=== PATIENT | male | born 1980 | race Caucasian/White ===

== ENCOUNTER 2019-04-29 09:37 | Observation (INO) ==
[2019-04-29] MEDS ORDERED: HYDROmorphone 2 MG/1 ML VIAL IV STA (11:31)
[2019-04-29] MEDS ORDERED: ONDANSETRON 4 MG/2 ML VIAL IV STA (11:31)
[2019-04-29] MEDS ORDERED: PANTOPRAZOLE 40 MG VIAL IV STA (11:31)
[2019-04-29] MEDS ORDERED: SODIUM CHLORIDE 0.9% 1,000 ML IV STA (11:31)
[2019-04-29 12:08] LABS: Albumin 3.5 G/DL (3.4-5.0); Bilirubin,Total 0.6 MG/DL (0.2-1.0); Calcium 8.7 MG/DL (8.5-10.1); Osmolality,Calculated 272.7 MOS/KG (273-304); Total Protein 8.4 G/DL (6.4-8.3)
[2019-04-29 12:13] LABS: Basophils # 0.1 10*3/uL (0.0-0.2); Basophils % 0.9 % (0.0-0.8); Eosinophils # 0.1 10*3/uL (0.0-0.87); Hematocrit 45.2 VOL% (42.0-52.0); Immature Granulocytes % 0.8 %; Immature Granulocytes Absolute 0.09 #; Lymphocytes # 6.4 10*3/uL (1.4-4.0); Lymphocytes % 58.6 % (21.2-54.2); Mean Corpuscular Volume 87.9 FL (87-102); Mean Platelet Volume 10.7 FL (9.6-12.0); Monocytes % 6.6 % (1.7-12.7); Neutrophils % 32.1 % (38.7-73.9); Platelet Count 195 T/CUMM (130-400); Red Blood Count 5.14 MC/CUMM (3.8-5.5); Red Cell Distribution Width 14.1 % (9.3-17.3)
[2019-04-29 12:20] LABS: Hemoglobin 14.9 GM/DL (14.0-18.0)
[2019-04-29 12:23] LABS: Apearance,Urine CLEAR (Clear); Bilirubin,Urine Negative (Negative); Blood, Urine Negative (Negative); Glucose,Urine (UA) Negative (Negative); Ketones,Urine Negative (Negative); Mucus,Urine Many /LPF (Occasional); Nitrite,Urine Negative (Negative); Protein,Urine 30 MG/DL; RBC,Urine 1 /HPF (0-4); Urine Color Amber (Yellow); Urine Specific Gravity 1.024 (1.001-1.035); WBC,Urine 1 /HPF (0-6)
[2019-04-29 12:31] LABS: Eosinophils 1 % (0-10); Total Cells Counted 100
[2019-04-29 12:34] LABS: Atypical Lymphocytes Few; Band Neutrophils 1 % (0-10); Lymphocytes 50 % (20-55); Platelet Estimate Adequate; Segmented Neutrophils 36 % (50-85)
[2019-04-29] MEDS ORDERED: FAMOTIDINE 20 MG/2 ML VIAL IV ONE (14:01)
[2019-04-29] MEDS ORDERED: FAMOTIDINE 20 MG/2 ML VIAL IV STA (14:05)
[2019-04-29] MEDS ORDERED: ACETAMINOPHEN 325 MG TABLET PO PRN (14:30)
[2019-04-29] MEDS ORDERED: PROMETHAZINE 25 MG/1 ML VIAL IM PRN (14:30)
[2019-04-29] MEDS ORDERED: MORPHINE 4 MG/1 ML VIAL IV PRN (14:30)
[2019-04-29] MEDS ORDERED: ONDANSETRON 4 MG/2 ML VIAL IV PRN (14:30)
[2019-04-29] MEDS ORDERED: TUBERCULIN SKIN TEST 0.1 ML SYRINGE INTRADERM ONE (15:30)
[2019-04-29 15:37] LABS: Risk Ratio 5.56; Thyroid Stimulating Hormone 2.55 uIU/ml (0.358-3.74)
[2019-04-29 16:59] LABS: HIV Antigen/Antibody Result Nonreactive (Nonreactive)
[2019-04-29 17:08] LABS: Hepatitis B Core IgM Quant 0.05 Index; Hepatitis B Surface Ag Quant < 0.10 Index; Hepatitis B Surface Ag Result Negative (Negative); Hepatitis C Virus Ab Result Negative (Negative)
[2019-04-29] MEDS: PANTOPRAZOLE 40 MG TABLET PO SCH ×2 (17:52→20:42)
[2019-04-29] MEDS: CIPROFLOXACIN INJ 400 MG in PREMIX 1 EACH IV SCH (17:52)
[2019-04-29] MEDS: metroNIDAZOLE INJ 500 MG in PREMIX 1 EACH IV SCH ×2 (17:52→23:15)
[2019-04-29] MEDS: SODIUM CHLORIDE 0.9% 1,000 ML IV SCH (17:53)
[2019-04-29 20:37] LABS: Barbiturates Screen,Urine Negative (Negative); Benzodiazepines Screen,Urine Negative (Negative); Cannabinoid Screen,Urine Positive (Negative); Opiate Screen,Urine Positive (Negative); Phencyclidine Screen,Urine Negative (Negative)
[2019-04-30] MEDS ORDERED: ALUMINUM/MAGNES/SIMETH MAX STR 30 ML UDCUP PO ONE (03:56)
[2019-04-30] MEDS: CIPROFLOXACIN INJ 400 MG in PREMIX 1 EACH IV SCH (04:21)
[2019-04-30] MEDS: SODIUM CHLORIDE 0.9% 1,000 ML IV SCH ×2 (04:21→07:11)
[2019-04-30 05:18] LABS: Bilirubin,Total 0.8 MG/DL (0.2-1.0); Total Protein 7.3 G/DL (6.4-8.3)
[2019-04-30 05:32] LABS: Basophils # 0.1 10*3/uL (0.0-0.2); Basophils % 0.9 % (0.0-0.8); Eosinophils # 0.2 10*3/uL (0.0-0.87); Hematocrit 42.6 VOL% (42.0-52.0); Hemoglobin 14.1 GM/DL (14.0-18.0); Lymphocytes # 5.9 10*3/uL (1.4-4.0); Lymphocytes % 57.5 % (21.2-54.2); Mean Corpuscular HGB Conc 33.1 GM/DL (32-36); Monocytes % 7.6 % (1.7-12.7); Platelet Count 186 T/CUMM (130-400); Red Blood Count 4.84 MC/CUMM (3.8-5.5); White Blood Count 10.2 T/CUMM (4-12)
[2019-04-30 05:52] LABS: Band Neutrophils 2 % (0-10); Eosinophils 2 % (0-10); Hypochromasia Slight; Lymphocytes 57 % (20-55); Platelet Estimate Adequate; Segmented Neutrophils 31 % (50-85); Total Cells Counted 100
[2019-04-30 05:53] LABS: Atypical Lymphocytes Few
[2019-04-30] MEDS: metroNIDAZOLE INJ 500 MG in PREMIX 1 EACH IV SCH (08:16)
[2019-04-30 11:46] VITALS: BP 148/99
[2019-05-02 22:31] LABS: IgA Serum (MAYO) 363 mg/dL (61 - 356)
[2019-05-08 12:57] LABS: Tissue Transglutaminase IgA Ab < 1.2 U/mL
== END 2019-04-30 13:10 | disposition hospice, home (50) ==
LOC: N.ED 09:37 → N.2E 09:37
PROVIDERS: ADMIT Internal Medicine; ATTEND Internal Medicine

== ENCOUNTER 2019-07-28 16:16 | Inpatient (IN) ==
[2019-07-28] MEDS ORDERED: PANTOPRAZOLE 40 MG VIAL IV STA (16:58)
[2019-07-28] MEDS ORDERED: SODIUM CHLORIDE 0.9% 1,000 ML IV STA (16:58)
[2019-07-28] MEDS ORDERED: ALUM/MAG/SIMETH/LIDO VISC 1:1 30 ML BOTTLE PO STA (16:58)
[2019-07-28] MEDS ORDERED: HYDROmorphone 2 MG/1 ML VIAL IV STA (16:58)
[2019-07-28] MEDS ORDERED: KETOROLAC 30 MG/1 ML VIAL IV STA (16:58)
[2019-07-28] MEDS ORDERED: ONDANSETRON 4 MG/2 ML VIAL IV STA (16:58)
[2019-07-28 17:08] LABS: Basophils % 0.4 % (0.0-0.8); Eosinophils # 0.2 10*3/uL (0.0-0.87); Eosinophils % 3.5 % (0.00-10.9); Hematocrit 51.8 VOL% (42.0-52.0); Immature Granulocytes % 0.4 %; Immature Granulocytes Absolute 0.03 #; Lymphocytes # 2.1 10*3/uL (1.4-4.0); Mean Corpuscular HGB Conc 34.7 GM/DL (32-36); Mean Corpuscular Volume 85.1 FL (87-102); Mean Platelet Volume 9.7 FL (9.6-12.0); Neutrophils % 53.7 % (38.7-73.9); Platelet Count 192 T/CUMM (130-400); Red Blood Count 6.09 MC/CUMM (3.8-5.5); Red Cell Distribution Width 13.4 % (9.3-17.3); White Blood Count 6.8 T/CUMM (4-12)
[2019-07-28 17:26] LABS: Bilirubin,Total 0.4 MG/DL (0.2-1.0); Calcium 9.2 MG/DL (8.5-10.1); Osmolality,Calculated 270.7 MOS/KG (273-304); Total Protein 8.3 G/DL (6.4-8.3)
[2019-07-28] MEDS ORDERED: DEXTROSE 50% 25 GM/50 ML VIAL IV STA (18:19)
[2019-07-28] MEDS ORDERED: DEXTROSE 50% 25 GM/50 ML SYRINGE IV ONE (18:33)
[2019-07-28 19:18] LABS: Apearance,Urine Slightly Hazy (Clear); Bilirubin,Urine Negative (Negative); Glucose,Urine (UA) 50 mg/dL (Negative); Ketones,Urine Negative (Negative); Nitrite,Urine Negative (Negative); Protein,Urine Negative; Urine Color Yellow (Yellow); Urine Specific Gravity 1.025 (1.001-1.035)
[2019-07-28 19:19] LABS: Bacteria,Urine Occasional /HPF (Few); Blood, Urine Negative (Negative); Hyaline Casts,Urine 1 /LPF (0-3); Mucus,Urine Occasional /LPF (Occasional); RBC,Urine 1 /HPF (0-4); Urine Urobilinogen < 2.0 EU/DL (0.2-1.0); WBC,Urine <1 /HPF (0-6)
[2019-07-28] MEDS ORDERED: ONDANSETRON 4 MG/2 ML VIAL IV PRN (19:48)
[2019-07-28] MEDS ORDERED: DEXTROSE 10% 250 ML BAG IV PRN (19:58)
[2019-07-28] MEDS ORDERED: GLUCAGON 1 MG VIAL IM PRN (19:58)
[2019-07-28] MEDS: DEXT 5% NACL 0.45% KCL 20 MEQ 20 MEQ/1,000 ML BAG IV SCH (21:08)
[2019-07-29] MEDS: DEXT 5% NACL 0.45% KCL 20 MEQ 20 MEQ/1,000 ML BAG IV SCH ×3 (04:18→19:44)
[2019-07-29 06:10] LABS: Basophils % 0.5 % (0.0-0.8); Eosinophils # 0.3 10*3/uL (0.0-0.87); Eosinophils % 4.7 % (0.00-10.9); Hematocrit 46.4 VOL% (42.0-52.0); Immature Granulocytes % 0.3 %; Immature Granulocytes Absolute 0.02 #; Lymphocytes # 1.8 10*3/uL (1.4-4.0); Lymphocytes % 30.6 % (21.2-54.2); Mean Corpuscular HGB Conc 34.1 GM/DL (32-36); Mean Corpuscular Volume 86.7 FL (87-102); Mean Platelet Volume 9.9 FL (9.6-12.0); Monocytes % 11.4 % (1.7-12.7); Neutrophils % 52.5 % (38.7-73.9); Platelet Count 174 T/CUMM (130-400); Red Blood Count 5.35 MC/CUMM (3.8-5.5); Red Cell Distribution Width 13.3 % (9.3-17.3)
[2019-07-29 06:17] LABS: Iron 153 UG/DL (65-175)
[2019-07-29 06:22] LABS: Hemoglobin 15.8 GM/DL (14.0-18.0)
[2019-07-29 06:29] LABS: Calcium 8.6 MG/DL (8.5-10.1); Osmolality,Calculated 272.7 MOS/KG (273-304); Risk Ratio 4.54; Thyroid Stimulating Hormone 4.44 uIU/ml (0.358-3.74); VLDL CHOLESTEROL 29.2 MG/DL
[2019-07-29 07:12] LABS: HIV Antigen/Antibody Result Nonreactive (Nonreactive)
[2019-07-29 08:01] LABS: Barbiturates Screen,Urine Negative (Negative); Benzodiazepines Screen,Urine Negative (Negative); Cannabinoid Screen,Urine Positive (Negative); Opiate Screen,Urine Positive (Negative); Phencyclidine Screen,Urine Negative (Negative)
[2019-07-29] MEDS: PANTOPRAZOLE 40 MG VIAL IV SCH (08:49)
[2019-07-30] MEDS: DEXT 5% NACL 0.45% KCL 20 MEQ 20 MEQ/1,000 ML BAG IV SCH ×3 (03:07→22:38)
[2019-07-30 06:02] LABS: Free T4 (Free Thyroxine) 1.05 NG/DL (0.76-1.46)
[2019-07-30] MEDS ORDERED: LACTATED RINGERS 1,000 ML IV SCH (08:00)
[2019-07-30] MEDS ORDERED: LIDOCAINE 100 MG/5 ML SYRINGE ONE (08:30)
[2019-07-30] MEDS ORDERED: PROPOFOL 200 MG/20 ML VIAL IV ONE (08:30)
[2019-07-30] MEDS: PANTOPRAZOLE 40 MG VIAL IV SCH (12:17)
[2019-07-31 06:03] LABS: Basophils % 0.3 % (0.0-0.8); Eosinophils # 0.3 10*3/uL (0.0-0.87); Eosinophils % 3.4 % (0.00-10.9); Hematocrit 48.3 VOL% (42.0-52.0); Hemoglobin 16.9 GM/DL (14.0-18.0); Immature Granulocytes % 0.3 %; Immature Granulocytes Absolute 0.02 #; Lymphocytes # 2.1 10*3/uL (1.4-4.0); Lymphocytes % 26.6 % (21.2-54.2); Mean Platelet Volume 10.2 FL (9.6-12.0); Monocytes % 11.1 % (1.7-12.7); Neutrophils % 58.3 % (38.7-73.9); Platelet Count 193 T/CUMM (130-400); Red Blood Count 5.75 MC/CUMM (3.8-5.5); Red Cell Distribution Width 13.3 % (9.3-17.3); White Blood Count 7.9 T/CUMM (4-12)
[2019-07-31 06:19] LABS: Osmolality,Calculated 267.1 MOS/KG (273-304)
[2019-07-31] MEDS: MORPHINE 4 MG/1 ML VIAL IV PRN ×2 (08:35→20:45)
[2019-07-31] MEDS: PANTOPRAZOLE 40 MG TABLET PO SCH (08:39)
[2019-08-01] MEDS: MORPHINE 4 MG/1 ML VIAL IV PRN ×2 (05:03→10:33)
[2019-08-01] MEDS: PANTOPRAZOLE 40 MG TABLET PO SCH (10:29)
[2019-08-01] MEDS ORDERED: MORPHINE 4 MG/1 ML VIAL IV PRN ×2 (10:46→10:47)
[2019-08-01] MEDS ORDERED: traMADol 50 MG TABLET PO PRN (10:47)
[2019-08-01 16:15] VITALS: BP 121/71
== END 2019-08-01 17:45 | disposition home or self-care (01) | DRG 282 ==
LOC: EDBD → EDUNIT# → N.EDINP 16:16 → N.ED 16:16 → N.3E 20:39
PROVIDERS: ADMIT Hospitalist; ATTEND Hospitalist

== ENCOUNTER 2020-09-13 18:01 | Observation (INO) ==
[2020-09-13 19:58] LABS: Basophils # 0.1 10*3/uL (0.0-0.2); Basophils % 0.4 % (0.0-0.8); Eosinophils # 1.7 10*3/uL (0.0-0.87); Eosinophils % 10.5 % (0.00-10.9); Hematocrit 50.4 VOL% (42.0-52.0); Hemoglobin 17.6 GM/DL (14.0-18.0); Immature Granulocytes % 0.5 %; Immature Granulocytes Absolute 0.08 #; Lymphocytes # 2.6 10*3/uL (1.4-4.0); Lymphocytes % 16.4 % (21.2-54.2); Mean Corpuscular HGB Conc 34.9 GM/DL (32-36); Mean Platelet Volume 9.8 FL (9.6-12.0); Monocytes % 8.5 % (1.7-12.7); Neutrophils % 63.7 % (38.7-73.9); Platelet Count 241 T/CUMM (130-400); Red Blood Count 5.73 MC/CUMM (3.8-5.5); Red Cell Distribution Width 13.2 % (9.3-17.3); White Blood Count 15.9 T/CUMM (4-12)
[2020-09-13] MEDS ORDERED: methylPREDNISolone SOD SUC 125 MG/2 ML VIAL IV STA (20:23)
[2020-09-13] MEDS ORDERED: diphenhydrAMINE 50 MG/1 ML VIAL IV STA (20:23)
[2020-09-13 20:33] LABS: Albumin 3.6 G/DL (3.4-5.0); Bilirubin,Total 0.5 MG/DL (0.2-1.0); Calcium 8.9 MG/DL (8.5-10.1); Osmolality,Calculated 265.2 MOS/KG (273-304)
[2020-09-13] MEDS ORDERED: CLINDAMYCIN INJ 600 MG in PREMIX 1 EACH IV STA (20:52)
[2020-09-13] MEDS ORDERED: HYDROmorphone 2 MG/1 ML VIAL IV STA (21:04)
[2020-09-13] MEDS ORDERED: GLUCAGON 1 MG VIAL IM PRN (21:44)
[2020-09-13] MEDS ORDERED: DEXTROSE 50% 25 GM/50 ML VIAL IV PRN (21:44)
[2020-09-13] MEDS ORDERED: ACETAMINOPHEN 325 MG TABLET PO PRN (21:44)
[2020-09-13] MEDS ORDERED: NICOTINE 21 MG/24 HR PATCH TRANSDERM PRN (21:44)
[2020-09-13] MEDS ORDERED: ONDANSETRON 4 MG/2 ML VIAL IV PRN (21:44)
[2020-09-13 22:04] LABS: Albumin 3.6 G/DL (3.4-5.0); Bilirubin,Direct 0.1 MG/DL (0.0-0.20); Bilirubin,Indirect 0.4 MG/DL (0.0-1.0); Bilirubin,Total 0.5 MG/DL (0.2-1.0)
[2020-09-13 22:52] LABS: HIV Antigen/Antibody Result Nonreactive (Nonreactive); Hepatitis B Core IgM Quant 0.11 Index; Hepatitis B Surface Ag Quant < 0.10 Index; Hepatitis B Surface Ag Result Negative (Negative); Hepatitis C Virus Ab Quant 0.02 Index; Hepatitis C Virus Ab Result Negative (Negative)
[2020-09-13 23:12] LABS: Barbiturates Screen,Urine Negative (Negative); Benzodiazepines Screen,Urine Negative (Negative); Cannabinoid Screen,Urine Positive (Negative); Opiate Screen,Urine Positive (Negative); Phencyclidine Screen,Urine Negative (Negative)
[2020-09-13] MEDS ORDERED: FLUCONAZOLE INJ 200 MG in PREMIX 1 EACH IV SCH (23:30)
[2020-09-13 23:42] LABS: Bilirubin,Urine Negative (Negative); Blood, Urine Negative (Negative); Glucose,Urine (UA) Negative (Negative); Hyaline Casts,Urine 2 /LPF (0-3); Ketones,Urine 5 mg/dL (Negative); Mucus,Urine Many /LPF (Occasional); Nitrite,Urine Negative (Negative); Protein,Urine 30 MG/DL; RBC,Urine <1 /HPF (0-4); Squamous Epithelial Cell,Urine Occasional /HPF (0-10); Urine Appearance CLEAR (Clear); Urine Color Yellow (Yellow); Urine Specific Gravity 1.021 (1.001-1.035); Urine Urobilinogen < 2.0 EU/DL (0.2-1.0); WBC,Urine 1 /HPF (0-6)
[2020-09-14] MEDS: MORPHINE 4 MG/1 ML VIAL IV PRN ×4 (00:18→21:25)
[2020-09-14] MEDS: diphenhydrAMINE CAP 25 MG CAPSULE PO PRN ×4 (00:18→20:27)
[2020-09-14] MEDS: VANCOMYCIN INJ 1,000 MG in SODIUM CHLORIDE 0.9% 250 ML IV SCH ×2 (01:32→11:40)
[2020-09-14] MEDS ORDERED: IVERMECTIN 3 MG TABLET PO ONE (15:00)
[2020-09-15] MEDS: MORPHINE 4 MG/1 ML VIAL IV PRN ×2 (02:38→10:27)
[2020-09-15 04:04] LABS: Basophils % 0.2 % (0.0-0.8); Eosinophils # 0.4 10*3/uL (0.0-0.87); Eosinophils % 2.9 % (0.00-10.9); Hematocrit 44.3 VOL% (42.0-52.0); Immature Granulocytes % 0.7 %; Immature Granulocytes Absolute 0.09 #; Lymphocytes # 2.4 10*3/uL (1.4-4.0); Lymphocytes % 18.3 % (21.2-54.2); Mean Corpuscular HGB Conc 35.2 GM/DL (32-36); Mean Corpuscular Volume 87.9 FL (87-102); Mean Platelet Volume 9.9 FL (9.6-12.0); Monocytes % 9.9 % (1.7-12.7); Platelet Count 228 T/CUMM (130-400); Red Blood Count 5.04 MC/CUMM (3.8-5.5); Red Cell Distribution Width 13.2 % (9.3-17.3); White Blood Count 13.2 T/CUMM (4-12)
[2020-09-15 04:10] LABS: Calcium 8.6 MG/DL (8.5-10.1)
[2020-09-15 04:10] LABS: Hemoglobin 15.6 GM/DL (14.0-18.0)
[2020-09-15] MEDS: diphenhydrAMINE CAP 25 MG CAPSULE PO PRN (11:15)
[2020-09-15 11:49] VITALS: BP 142/85
[2020-09-15 14:16] LABS: Mycoplasma pneumoniae Ab Inter SEE COMMENTS; Mycoplasma pneumoniae Ab, IgG Positive (Negative); Mycoplasma pneumoniae Ab, IgM Negative (Negative)
== END 2020-09-15 12:33 | disposition home or self-care (01) ==
LOC: EDUNIT# → EDBD → N.ED 18:01 → N.EDINP 18:01 → N.5E 22:23
PROVIDERS: ADMIT Hospitalist; ATTEND Hospitalist